=== PATIENT | female | born 1980 | race African-American/Black ===

== ENCOUNTER 2017-03-02 23:45 | Emergency (ER) | payer MEDICAID ==
[~2017-03-02] VITALS: Ht 160 cm; Wt 117.0 kg
[~2017-03-02 23:45] MED LIST: ARIP15TA6 PO; ATOR10TA PO; BUPR100T14 PO; CHOL20007 PO; HYDR25TA4 PO; LISI40TA PO; METF-372 PO; TOPI25TA32 PO; WARF10TA20 PO; [UNRECOGNIZED DRUG - CODE] PO
[2017-03-03] MEDS ORDERED: TETANUS-DIPTH-ACEL PERTUSSIS 0.5ML SYRG IM ONE (02:45)
[2017-03-03] MEDS ORDERED: methylPREDNISolone SOD SUCC 125 MG/2 ML VL IM ONE (02:45)
[2017-03-03 02:55] VITALS: BP 186/106
== END 2017-03-03 03:55 | disposition home or self-care (01) ==
LOC: ER 23:47
DX: S50.361A Insect bite (nonvenomous) of right elbow, initial encounter (principal); S20.469A Insect bite (nonvenomous) of unspecified back wall of thorax, initial encounter; E78.5 Hyperlipidemia, unspecified; I10 Essential (primary) hypertension; E11.9 Type 2 diabetes mellitus without complications; F17.210 Nicotine dependence, cigarettes, uncomplicated; Z88.6 Allergy status to analgesic agent; Z88.8 Allergy status to other drugs, medicaments and biological substances; Z79.899 Other long term (current) drug therapy; Z79.01 Long term (current) use of anticoagulants; W57.XXXA Bitten or stung by nonvenomous insect and other nonvenomous arthropods, initial encounter; Y93.89 Activity, other specified; Y92.89 Other specified places as the place of occurrence of the external cause; Y99.8 Other external cause status
CPT/HCPCS: 90471; 90715; 96372; 99284; J2930

== ENCOUNTER 2017-07-04 20:29 | Emergency (ER) | payer MEDICAID ==
[~2017-07-04] VITALS: Ht 160 cm; Wt 114.3 kg
[2017-07-04] MEDS ORDERED: cloNIDine HCL 0.1 MG TAB ONE (21:00)
[2017-07-04] MEDS ORDERED: traMADol HCL 50 MG TAB PO ONE (21:15)
[2017-07-04] MEDS ORDERED: cloNIDine HCL 0.1 MG TAB PO ONE (21:15)
[2017-07-04 21:23] LABS: Eosinophils # (auto) 0.3 uL; Monocytes # (auto) 0.4 uL; Nucleated Red Blood Cells % 0.1 %
[2017-07-04 21:24] LABS: Basophils # (auto) 0.1 uL; Basophils % (auto) 1.7 % (0.0-2.0); Eosinophils % (auto) 4.5 % (0.0-7.0); Hematocrit 35.7 % (36.0-46.0); Hemoglobin 11.3 g/dL (12.2-16.2); Lymphocytes # (auto) 1.8 uL; Lymphocytes % (auto) 27.2 % (10.0-50.0); Mean Corpuscular Hemoglobin 24.6 pg (28.0-32.0); Mean Corpuscular Hgb Conc. 31.8 g/dL (32.0-36.0); Mean Corpuscular Volume 77.3 fL (80.0-100.0); Mean Platelet Volume 8.7 fL (6.9-10.8); Monocytes % (auto) 5.9 % (0.0-12.0); Neutrophils # (auto) 4.1 uL; Neutrophils % (auto) 60.7 % (37.0-80.0); Platelet Count (auto) 229 10^3/uL (140-450); Red Cell Distribution Width 15.4 % (11.8-14.3); White Blood Cell 6.8 10^3/uL (4.4-10.8)
[2017-07-04 21:39] LABS: Albumin 2.2 g/dL (3.4-5.0); Anion Gap 8 (5-15); Aspartate Aminotransferase 22 U/L (15-37); BUN/Creatinine Ratio 10.5; Blood Urea Nitrogen 12 mg/dL (7-18); Calcium 8.1 mg/dL (8.5-10.1); Carbon Dioxide 22 mmol/L (21-32); Chloride 109 mmol/L (98-107); GFR African American 70 mL/min; GFR Non-African American 58 mL/min; Glucose 154 mg/dL (74-106); Sodium 139 mmol/L (136-145)
[2017-07-04 21:43] LABS: Alkaline Phosphatase 83 U/L (45-117); Bilirubin, Total < 0.1 mg/dL (0.2-1.0); Total Protein 6.9 g/dL (6.4-8.2)
[2017-07-04 21:46] LABS: B-Type Natriuretic Peptide 39.21 pg/mL (0-100)
[2017-07-04 21:51] LABS: Temperature: 22.4 C (20.0-25.0)
[2017-07-04 23:42] VITALS: BP 148/78
== END 2017-07-05 03:17 | disposition left against medical advice (07) ==
LOC: ER 20:29
DX: G43.909 Migraine, unspecified, not intractable, without status migrainosus (principal); I10 Essential (primary) hypertension; E11.9 Type 2 diabetes mellitus without complications; I69.351 Hemiplegia and hemiparesis following cerebral infarction affecting right dominant side; F32.9 Major depressive disorder, single episode, unspecified; E78.5 Hyperlipidemia, unspecified; M54.2 Cervicalgia; F17.210 Nicotine dependence, cigarettes, uncomplicated; F12.10 Cannabis abuse, uncomplicated
CPT/HCPCS: 36415; 70450; 80053; 83880; 84484; 85025; 93005

== ENCOUNTER 2020-01-12 18:02 | Emergency (ER) | payer MEDICAID ==
[~2020-01-12] VITALS: Ht 167.6 cm; Wt 113.4 kg
[2020-01-12 20:09] VITALS: BP 156/92
== END 2020-01-12 20:33 | disposition home or self-care (01) ==
LOC: ER 18:02
DX: N75.0 Cyst of Bartholin's gland (principal); E11.9 Type 2 diabetes mellitus without complications; E78.5 Hyperlipidemia, unspecified; I10 Essential (primary) hypertension; Z88.5 Allergy status to narcotic agent; Z88.6 Allergy status to analgesic agent; F17.210 Nicotine dependence, cigarettes, uncomplicated

== ENCOUNTER 2022-10-26 11:48 | Inpatient (IN) | payer MEDICAID ==
[~2022-10-26] VITALS: Ht 160 cm; Wt 102.3 kg
[~2022-10-26 11:48] MED LIST changes: +BUPR-160 PO; -BUPR100T14 PO; -LISI40TA PO; +LISI40TA11 PO; -TOPI25TA32 PO; +TOPI25TA43 PO
[2022-10-26 14:28] LABS: Basophils # (auto) 0 10 ^3/uL (0-0.2); Eosinophils # (auto) 0.1 10 ^3/uL (0-0.8); Eosinophils % (auto) 1.9 % (0.0-7.0); Monocytes # (auto) 0.6 10 ^3/uL (0-1.3); Nucleated Red Blood Cells % 0.3 %
[2022-10-26 14:32] LABS: Basophils % (auto) 0.9 % (0.0-2.0); Hematocrit 26.1 % (36.0-46.0); Hemoglobin 8.5 g/dL (12.2-16.2); Lymphocytes # (auto) 1.2 10 ^3/uL (0.4-5.4); Mean Corpuscular Hemoglobin 25.5 pg (28.0-32.0); Mean Corpuscular Hgb Conc. 32.5 g/dL (32.0-36.0); Mean Corpuscular Volume 78.4 fL (80.0-100.0); Monocytes % (auto) 12.5 % (0.0-12.0); Neutrophils # (auto) 2.7 10 ^3/uL (1.6-8.6); Neutrophils % (auto) 58.7 % (37.0-80.0); Red Blood Cells 3.32 10^6/uL (4.0-5.20); Red Cell Distribution Width 19.2 % (11.8-14.3); White Blood Cell 4.5 10^3/uL (4.4-10.8)
[2022-10-26 14:42] LABS: Albumin 3.5 g/dL (3.4-5.0); Calcium 9.1 mg/dL (8.5-10.1); Magnesium 2.3 mg/dL (1.6-2.6); Potassium 3.5 mmol/L (3.5-5.1)
[2022-10-26 14:45] LABS: BUN/Creatinine Ratio 5.7 (10.0-20.0); Bilirubin, Total 0.2 mg/dL (0.2-1.0); INR 1.95 (0.9-1.15); Partial Thromboplastin Time 33.3 sec (24.6-33.4)
[2022-10-26] MEDS ORDERED: MORPHINE SULFATE INJ 2 MG/ml SYRG IV PRN (16:30)
[2022-10-26] MEDS ORDERED: NITROGLYCERIN 0.4 MG SL TAB SL PRN (16:30)
[2022-10-26] MEDS ORDERED: DEXTROSE (50%) 50ML SYRG IV PRN (16:30)
[2022-10-26 17:08] LABS: Cholesterol 140 mg/dL (< 200)
[2022-10-26 17:11] LABS: HDL Cholesterol 89 mg/dL (40-59); LDL Cholesterol 47 mg/dL (< 100); Triglycerides 36 mg/dL (< 150)
[2022-10-26] MEDS: InsuLIN REG 1unit/0.01ml Soln (100units/ml) SC SCH ×2 (18:06→22:00)
[2022-10-26] MEDS: ACCU-CHEK COMFORT CURVE STRIP VI SCH ×2 (18:06→22:23)
[2022-10-26] MEDS ORDERED: WARFARIN SODIUM 2.5 MG TAB PO ONE (18:30)
[2022-10-26] MEDS: HYDROcodone-ACET 5/325MG TAB PO PRN (21:37)
[2022-10-26] MEDS ORDERED: HEPARIN SODIUM (PORCINE) 5000 UNITS/ML 1ML VIAL SC SCH (22:00)
[2022-10-26] MEDS ORDERED: TOPIRAMATE 25 MG TAB PO SCH (22:00)
[2022-10-26] MEDS: ARIPIPRAZOLE 15 MG PO SCH (22:00)
[2022-10-26] MEDS: ATORVASTATIN 20 MG TAB PO SCH (22:19)
[2022-10-27 05:00] VITALS: BP 118/40
[2022-10-27 05:03] VITALS: BP 112/31
[2022-10-27 06:38] LABS: Albumin 3.1 g/dL (3.4-5.0); Calcium 8.7 mg/dL (8.5-10.1); Potassium 3.9 mmol/L (3.5-5.1)
[2022-10-27 06:43] LABS: BUN/Creatinine Ratio 6.2 (10.0-20.0); Bilirubin, Total 0.3 mg/dL (0.2-1.0); Total Protein 7.7 g/dL (6.4-8.2)
[2022-10-27 06:47] LABS: INR 1.67 (0.9-1.15); Partial Thromboplastin Time 39.9 sec (24.6-33.4)
[2022-10-27] MEDS: ACCU-CHEK COMFORT CURVE STRIP VI SCH ×4 (06:53→22:22)
[2022-10-27] MEDS: InsuLIN REG 1unit/0.01ml Soln (100units/ml) SC SCH ×4 (06:53→22:00)
[2022-10-27 08:22] LABS: Eosinophils # (auto) 0.1 10 ^3/uL (0-0.8); Lymphocytes # (auto) 1.4 10 ^3/uL (0.4-5.4); Mean Corpuscular Hgb Conc. 32.1 g/dL (32.0-36.0); Monocytes # (auto) 0.4 10 ^3/uL (0-1.3); Nucleated Red Blood Cells % 0.4 %
[2022-10-27 08:24] LABS: Basophils # (auto) 0.1 10 ^3/uL (0-0.2); Basophils % (auto) 1.2 % (0.0-2.0); Eosinophils % (auto) 3.4 % (0.0-7.0); Monocytes % (auto) 10.1 % (0.0-12.0); Neutrophils # (auto) 2.3 10 ^3/uL (1.6-8.6); Neutrophils % (auto) 52.3 % (37.0-80.0); Red Cell Distribution Width 18.9 % (11.8-14.3); White Blood Cell 4.4 10^3/uL (4.4-10.8)
[2022-10-27 09:00] VITALS: BP 138/74
[2022-10-27] MEDS: HYDROcodone-ACET 5/325MG TAB PO PRN ×2 (09:14→20:24)
[2022-10-27] MEDS ORDERED: buPROPion HCL 100 MG TAB PO SCH (10:00)
[2022-10-27] MEDS ORDERED: LISINOPRIL 20 MG TAB PO SCH (10:00)
[2022-10-27] MEDS ORDERED: WARFARIN SODIUM 10 MG TAB PO SCH (10:00)
[2022-10-27] MEDS ORDERED: HCTZ 25 MG TAB PO SCH (10:00)
[2022-10-27 13:00] VITALS: BP 132/38
[2022-10-27] MEDS: MORPHINE SULFATE INJ 2 MG/ml SYRG IV PRN (14:44)
[2022-10-27] MEDS ORDERED: IOHEXOL 350 MG/ML 100ML IJ ONE (16:26)
[2022-10-27] MEDS ORDERED: WARFARIN SODIUM 5 MG TAB PO ONE (17:00)
[2022-10-27] MEDS: LISINOPRIL 20 MG TAB PO SCH (17:19)
[2022-10-27] MEDS: ARIPIPRAZOLE 15 MG PO SCH (22:00)
[2022-10-27] MEDS: ATORVASTATIN 20 MG TAB PO SCH (22:22)
[2022-10-28] MEDS: HYDROcodone-ACET 5/325MG TAB PO PRN (05:54)
[2022-10-28] MEDS: ACCU-CHEK COMFORT CURVE STRIP VI SCH ×4 (06:00→22:13)
[2022-10-28] MEDS: InsuLIN REG 1unit/0.01ml Soln (100units/ml) SC SCH ×4 (06:00→22:00)
[2022-10-28 06:35] LABS: INR 1.9 (0.9-1.15); Partial Thromboplastin Time 34.9 sec (24.6-33.4)
[2022-10-28] MEDS ORDERED: SODIUM CHL 0.9% 1000 ML BAG XX ONE (07:00)
[2022-10-28 08:52] VITALS: BP 155/53
[2022-10-28] MEDS: LISINOPRIL 20 MG TAB PO SCH (10:00)
[2022-10-28] MEDS: MORPHINE SULFATE INJ 2 MG/ml SYRG IV PRN ×2 (12:56→20:02)
[2022-10-28 13:27] VITALS: BP 148/48
[2022-10-28 14:35] LABS: Hematocrit 26.7 % (36.0-46.0)
[2022-10-28 14:37] LABS: Hemoglobin 8.7 g/dL (12.2-16.2)
[2022-10-28] MEDS ORDERED: WARFARIN SODIUM 2 MG TAB PO ONE (17:00)
[2022-10-28 17:21] VITALS: BP 177/55
[2022-10-28] MEDS ORDERED: EPOETIN ALFA-EPBX 10,000 UNIT/1ML VIAL SC ONE (21:00)
[2022-10-28 22:00] VITALS: BP 155/66
[2022-10-28] MEDS: ARIPIPRAZOLE 15 MG PO SCH (22:00)
[2022-10-28] MEDS: ATORVASTATIN 20 MG TAB PO SCH (22:12)
[2022-10-29 05:00] VITALS: BP 154/60
[2022-10-29] MEDS: MORPHINE SULFATE INJ 2 MG/ml SYRG IV PRN ×3 (05:16→20:17)
[2022-10-29 05:49] LABS: Eosinophils # (auto) 0.2 10 ^3/uL (0-0.8); Lymphocytes # (auto) 1.4 10 ^3/uL (0.4-5.4); Monocytes # (auto) 0.5 10 ^3/uL (0-1.3)
[2022-10-29 05:52] LABS: Basophils # (auto) 0 10 ^3/uL (0-0.2); Basophils % (auto) 0.9 % (0.0-2.0); Eosinophils % (auto) 3.2 % (0.0-7.0); Hematocrit 24.5 % (36.0-46.0); Hemoglobin 8.2 g/dL (12.2-16.2); Lymphocytes % (auto) 27.9 % (10.0-50.0); Mean Corpuscular Hemoglobin 25.5 pg (28.0-32.0); Mean Corpuscular Hgb Conc. 33.3 g/dL (32.0-36.0); Mean Corpuscular Volume 76.6 fL (80.0-100.0); Monocytes % (auto) 10.4 % (0.0-12.0); Neutrophils # (auto) 2.9 10 ^3/uL (1.6-8.6); Neutrophils % (auto) 57.6 % (37.0-80.0); Red Cell Distribution Width 18.9 % (11.8-14.3)
[2022-10-29 06:05] LABS: INR 1.9 (0.9-1.15)
[2022-10-29] MEDS: InsuLIN REG 1unit/0.01ml Soln (100units/ml) SC SCH ×4 (06:26→22:00)
[2022-10-29] MEDS: ACCU-CHEK COMFORT CURVE STRIP VI SCH ×4 (06:26→22:14)
[2022-10-29 06:38] LABS: BUN/Creatinine Ratio 7.1 (10.0-20.0); Calcium 8.9 mg/dL (8.5-10.1); Potassium 4.7 mmol/L (3.5-5.1)
[2022-10-29 09:00] VITALS: BP 154/53
[2022-10-29] MEDS: HYDROcodone-ACET 5/325MG TAB PO PRN (10:00)
[2022-10-29] MEDS: LISINOPRIL 20 MG TAB PO SCH (10:01)
[2022-10-29 13:00] VITALS: BP 165/49
[2022-10-29] MEDS: hydrALAZINE HCL 20 MG/ML VL IV PRN (14:03)
[2022-10-29 17:00] VITALS: BP 175/112
[2022-10-29] MEDS ORDERED: WARFARIN SODIUM 5 MG TAB PO ONE (17:00)
[2022-10-29] MEDS ORDERED: amLODIPine BESYLATE 5 MG TAB PO SCH (17:15)
[2022-10-29] MEDS ORDERED: cloNIDine HCL 0.1 MG TAB PO ONE ×2 (17:15)
[2022-10-29] MEDS: cloNIDine HCL 0.1 MG TAB PO SCH ×2 (17:15→22:13)
[2022-10-29] MEDS: amLODIPine BESYLATE 5 MG TAB PO SCH ×3 (17:45→18:39)
[2022-10-29] MEDS ORDERED: MINOXIDIL 2.5 MG TAB PO PRN (17:45)
[2022-10-29 22:00] VITALS: BP 130/62
[2022-10-29] MEDS: ARIPIPRAZOLE 15 MG PO SCH (22:00)
[2022-10-29] MEDS: ATORVASTATIN 20 MG TAB PO SCH (22:14)
[2022-10-30] VITALS (7 sets, daily range): BP systolic 124–168; BP diastolic 48–71
[2022-10-30] MEDS ORDERED: TEMA30CA PO (00:54)
[2022-10-30] MEDS ORDERED: CITA10TA70 PO (00:54)
[2022-10-30] MEDS ORDERED: WARF10TA20 PO (00:54)
[2022-10-30] MEDS ORDERED: TEMA15CA2 PO (00:54)
[2022-10-30] MEDS ORDERED: CARV12.544 PO (00:54)
[2022-10-30] MEDS ORDERED: NIF10C PO (00:54)
[2022-10-30] MEDS ORDERED: THIA100T5 PO (00:54)
[2022-10-30] MEDS ORDERED: HYDR50TA15 PO (00:54)
[2022-10-30] MEDS ORDERED: GEMF-19 PO (00:54)
[2022-10-30] MEDS ORDERED: ATOR40TA52 PO (00:54)
[2022-10-30] MEDS ORDERED: ASPI-543 PO (00:54)
[2022-10-30] MEDS ORDERED: ARIP1TAB5 PO (00:54)
[2022-10-30] MEDS ORDERED: FOLI1TAB6 PO (00:54)
[2022-10-30] MEDS ORDERED: MIN25T PO (00:54)
[2022-10-30] MEDS ORDERED: HYDR-4902 PO (00:56)
[2022-10-30] MEDS: MORPHINE SULFATE INJ 2 MG/ml SYRG IV PRN ×3 (04:20→23:31)
[2022-10-30] MEDS: InsuLIN REG 1unit/0.01ml Soln (100units/ml) SC SCH ×4 (06:32→20:52)
[2022-10-30] MEDS: ACCU-CHEK COMFORT CURVE STRIP VI SCH ×4 (06:32→20:52)
[2022-10-30 07:12] LABS: Basophils # (auto) 0.1 10 ^3/uL (0-0.2); Basophils % (auto) 1.5 % (0.0-2.0); Eosinophils # (auto) 0.1 10 ^3/uL (0-0.8); Eosinophils % (auto) 2.7 % (0.0-7.0); Hemoglobin 8.3 g/dL (12.2-16.2); Lymphocytes # (auto) 1.2 10 ^3/uL (0.4-5.4); Lymphocytes % (auto) 26.9 % (10.0-50.0); Mean Corpuscular Hemoglobin 25.3 pg (28.0-32.0); Mean Corpuscular Hgb Conc. 33.3 g/dL (32.0-36.0); Monocytes # (auto) 0.5 10 ^3/uL (0-1.3); Monocytes % (auto) 10.8 % (0.0-12.0); Neutrophils # (auto) 2.6 10 ^3/uL (1.6-8.6); Neutrophils % (auto) 58.1 % (37.0-80.0); Nucleated Red Blood Cells % 0.1 %; Red Blood Cells 3.29 10^6/uL (4.0-5.20); Red Cell Distribution Width 18.9 % (11.8-14.3); White Blood Cell 4.4 10^3/uL (4.4-10.8)
[2022-10-30 07:29] LABS: INR 2.22 (0.9-1.15); Partial Thromboplastin Time 40.2 sec (24.6-33.4)
[2022-10-30 07:40] LABS: Calcium 8.7 mg/dL (8.5-10.1)
[2022-10-30 07:43] LABS: BUN/Creatinine Ratio 7.8 (10.0-20.0)
[2022-10-30 07:48] LABS: Potassium 5.9 mmol/L (3.5-5.1)
[2022-10-30] MEDS ORDERED: ALBUTEROL SULF 2.5 MG/0.5ML(0.5%) NEB SOLN NEB ONE (09:30)
[2022-10-30] MEDS ORDERED: InsuLIN REG 1unit/0.01ml Soln (100units/ml) IV ONE (09:30)
[2022-10-30] MEDS ORDERED: DEXTROSE (50%) 50ML SYRG IV ONE (09:30)
[2022-10-30] MEDS ORDERED: SODIUM ZIRCONIUM CYCL 10 GM PAK PO ONE (09:30)
[2022-10-30] MEDS ORDERED: SODIUM CHLORIDE 0.9 % NEB SOLN 3ML NEB ONE (09:41)
[2022-10-30] MEDS ORDERED: MINOXIDIL 2.5 MG TAB PO SCH (10:00)
[2022-10-30] MEDS: cloNIDine HCL 0.1 MG TAB PO SCH ×2 (10:25→21:50)
[2022-10-30] MEDS ORDERED: DEXTROSE 10% 250 ML Bag IV ONE (11:30)
[2022-10-30] MEDS: HYDROcodone-ACET 5/325MG TAB PO PRN (12:26)
[2022-10-30 15:34] LABS: INR 2.16 (0.9-1.15); Partial Thromboplastin Time 38.9 sec (24.6-33.4)
[2022-10-30] MEDS: hydrALAZINE HCL 20 MG/ML VL IV PRN (16:55)
[2022-10-30] MEDS ORDERED: WARFARIN SODIUM 5 MG TAB PO ONE (17:00)
[2022-10-30] MEDS: amLODIPine BESYLATE 5 MG TAB PO SCH (17:52)
[2022-10-30] MEDS: ATORVASTATIN 20 MG TAB PO SCH (21:51)
[2022-10-30] MEDS: ARIPIPRAZOLE 15 MG PO SCH (22:00)
[2022-10-31 05:00] VITALS: BP 155/59
[2022-10-31] MEDS: InsuLIN REG 1unit/0.01ml Soln (100units/ml) SC SCH ×2 (06:24→11:30)
[2022-10-31] MEDS: ACCU-CHEK COMFORT CURVE STRIP VI SCH ×2 (06:25→12:06)
[2022-10-31] MEDS ORDERED: SODIUM CHL 0.9% 1000 ML BAG XX ONE (07:00)
[2022-10-31 07:03] LABS: Basophils # (auto) 0.1 10 ^3/uL (0-0.2); Basophils % (auto) 0.6 % (0.0-2.0); Eosinophils # (auto) 0.2 10 ^3/uL (0-0.8); Eosinophils % (auto) 1.8 % (0.0-7.0); Hematocrit 28.5 % (36.0-46.0); Hemoglobin 9.2 g/dL (12.2-16.2); Lymphocytes # (auto) 1.8 10 ^3/uL (0.4-5.4); Lymphocytes % (auto) 20.1 % (10.0-50.0); Mean Corpuscular Hemoglobin 24.9 pg (28.0-32.0); Mean Corpuscular Hgb Conc. 32.4 g/dL (32.0-36.0); Mean Corpuscular Volume 76.9 fL (80.0-100.0); Monocytes # (auto) 0.7 10 ^3/uL (0-1.3); Monocytes % (auto) 8.2 % (0.0-12.0); Neutrophils # (auto) 6.1 10 ^3/uL (1.6-8.6); Neutrophils % (auto) 69.3 % (37.0-80.0); Nucleated Red Blood Cells % 0.1 %; Red Blood Cells 3.71 10^6/uL (4.0-5.20); Red Cell Distribution Width 18.9 % (11.8-14.3); White Blood Cell 8.9 10^3/uL (4.4-10.8)
[2022-10-31 08:30] VITALS: BP 152/72
[2022-10-31 09:49] LABS: INR 3.04 (0.9-1.15)
[2022-10-31] MEDS: HYDROcodone-ACET 5/325MG TAB PO PRN (10:07)
[2022-10-31 12:00] VITALS: BP 183/67
[2022-10-31 12:50] VITALS: BP 152/72
[2022-10-31] MEDS: cloNIDine HCL 0.1 MG TAB PO SCH (14:45)
== END 2022-10-31 16:16 | disposition home or self-care (01) | DRG 204 ==
LOC: EDBD 11:48 → ER 11:48 → TELE-CENTR 16:17
PROVIDERS: ADMIT Nurse Practitioner Family; ATTEND Nurse Practitioner Acute Care
PROC: 5A1D70Z Performance of Urinary Filtration, Intermittent, Less than 6 Hours Per Day (ICD-10-PCS; principal; 2022-10-28)
PROC: 4A00X4Z Measurement of Central Nervous Electrical Activity, External Approach (ICD-10-PCS; 2022-10-29)
PROC: 5A1D70Z Performance of Urinary Filtration, Intermittent, Less than 6 Hours Per Day (ICD-10-PCS; 2022-10-31)
DX: I95.1 Orthostatic hypotension (principal); I12.0 Hypertensive chronic kidney disease with stage 5 chronic kidney disease or end stage renal disease; E11.22 Type 2 diabetes mellitus with diabetic chronic kidney disease; G81.91 Hemiplegia, unspecified affecting right dominant side; D63.1 Anemia in chronic kidney disease; N18.6 End stage renal disease; Z20.822 Contact with and (suspected) exposure to COVID-19; I25.10 Atherosclerotic heart disease of native coronary artery without angina pectoris; G43.909 Migraine, unspecified, not intractable, without status migrainosus; F31.9 Bipolar disorder, unspecified; E78.5 Hyperlipidemia, unspecified; E11.42 Type 2 diabetes mellitus with diabetic polyneuropathy; N25.81 Secondary hyperparathyroidism of renal origin; F17.210 Nicotine dependence, cigarettes, uncomplicated; F20.9 Schizophrenia, unspecified; E87.5 Hyperkalemia; Z95.3 Presence of xenogenic heart valve; Z83.3 Family history of diabetes mellitus; Z82.49 Family history of ischemic heart disease and other diseases of the circulatory system; Z82.3 Family history of stroke; Z79.01 Long term (current) use of anticoagulants; Z79.899 Other long term (current) drug therapy; Z74.01 Bed confinement status; Z99.2 Dependence on renal dialysis; Z88.6 Allergy status to analgesic agent; Z82.5 Family history of asthma and other chronic lower respiratory diseases; Z86.79 Personal history of other diseases of the circulatory system
CPT/HCPCS: 36415; 70450; 70498; 71045; 78582; 80048; 80053; 80061; 82728; 82962; 83036; 83605; 83735; 83880; 84443; 84484; 84702; 85014; 85018; 85025; 85379; 85610; 85730; 87040; 87426; 90935; 93005; 93306; 93886; 93970; 95819; 97110; 97116; 97163; 97530; G0378; J1815

== ENCOUNTER 2023-03-22 10:58 | Inpatient (IN) | payer MEDICAID, OTHER ==
[~2023-03-22] VITALS: Ht 167.6 cm; Wt 104.4 kg
[~2023-03-22 10:58] MED LIST changes: +ARIP1TAB5 PO; +ASPI-543 PO; +ATOR40TA52 PO; -BUPR-160 PO; +BUPR-346 PO; +CARV12.544 PO; +CITA10TA5 PO; +FOLI-119 PO; +GEMF-66 PO; +HYDR-4297 PO; +HYDR-4902 PO; -LISI40TA11 PO; +LISI40TA16 PO; +MIN25T PO; +NIF10C PO; +TEMA15CA2 PO; +TEMA30CA PO; +THIA100T5 PO; +WARF-115 PO; -WARF10TA20 PO
[2023-03-22] MEDS ORDERED: ONDANSETRON HCL 4 MG/2 ML VIAL IM ONE (11:15)
[2023-03-22] MEDS ORDERED: MORPHINE SULFATE 4 MG/ML SYR/VIAL IV ONE (11:15)
[2023-03-22 11:41] LABS: Basophils # (auto) 0 10 ^3/uL (0-0.2); Mean Corpuscular Hemoglobin 26.7 pg (28.0-32.0); Red Blood Cells 3.13 10^6/uL (4.0-5.20)
[2023-03-22 11:43] LABS: Basophils % (auto) 0.8 % (0.0-2.0); Eosinophils # (auto) 0.2 10 ^3/uL (0-0.8); Eosinophils % (auto) 4.8 % (0.0-7.0); Hematocrit 25.8 % (36.0-46.0); Hemoglobin 8.3 g/dL (12.2-16.2); Lymphocytes # (auto) 1.1 10 ^3/uL (0.4-5.4); Lymphocytes % (auto) 23.3 % (10.0-50.0); Mean Corpuscular Hgb Conc. 32.4 g/dL (32.0-36.0); Mean Corpuscular Volume 82.4 fL (80.0-100.0); Monocytes # (auto) 0.3 10 ^3/uL (0-1.3); Monocytes % (auto) 6.5 % (0.0-12.0); Neutrophils # (auto) 3.2 10 ^3/uL (1.6-8.6); Neutrophils % (auto) 64.6 % (37.0-80.0); Nucleated Red Blood Cells % 0.3 %; Red Cell Distribution Width 15.5 % (11.8-14.3); White Blood Cell 4.9 10^3/uL (4.4-10.8)
[2023-03-22 11:59] LABS: INR 3.15 (0.9-1.15); Partial Thromboplastin Time 53.8 SEC (24.5-34.5); Prothrombin Time 30.7 sec (9.3-11.8)
[2023-03-22 12:28] VITALS: PULSE 73; RESP 26; O2SAT 97
[2023-03-22] MEDS ORDERED: ONDANSETRON HCL 4 MG/2 ML VIAL IV ONE (12:30)
[2023-03-22 12:36] LABS: Albumin 4.2 g/dL (3.2-4.8); Alkaline Phosphatase 101 U/L (46-116); Anion Gap 6.1 (5-15); Aspartate Aminotransferase 10 U/L (13-40); BUN/Creatinine Ratio 4.3 (10.0-20.0); Blood Urea Nitrogen 20 mg/dL (9-23); Carbon Dioxide 30.9 mmol/L (20-30); Chloride 98 mmol/L (98-107); Glucose 61 mg/dL (74-106); Sodium 135 mmol/L (136-145)
[2023-03-22] MEDS ORDERED: cloNIDine HCL 0.1 MG TAB ONE (12:36)
[2023-03-22 12:37] LABS: Bilirubin, Total 0.4 mg/dL (0.2-1.0); Total Protein 8.2 g/dL (5.7-8.2)
[2023-03-22 12:40] LABS: Alanine Aminotransferase < 9 U/L (7-40)
[2023-03-22] MEDS ORDERED: cloNIDine HCL 0.1 MG TAB PO ONE (12:45)
[2023-03-22] MEDS ORDERED: hydrALAZINE HCL 20 MG/ML VL IV ONE (13:30)
[2023-03-22] MEDS ORDERED: hydrALAZINE HCL 20 MG/ML VL IV PRN (14:00)
[2023-03-22] MEDS ORDERED: ACETAMINOPHEN 325 MG TAB PO PRN (14:00)
[2023-03-22] MEDS ORDERED: NITROGLYCERIN 0.4 MG SL TAB SL PRN (14:00)
[2023-03-22] MEDS ORDERED: DEXTROSE (50%) 50ML SYRG IV PRN (14:15)
[2023-03-22 14:51] LABS: Triglycerides 54 mg/dL (< 150)
[2023-03-22 14:52] LABS: LDL Cholesterol 27 mg/dL (< 100)
[2023-03-22 14:53] LABS: Cholesterol 139 mg/dL (< 200); HDL Cholesterol 80 mg/dL (40-59)
[2023-03-22] MEDS ORDERED: ALBUTEROL SULF 2.5 MG/0.5ML(0.5%) NEB SOLN NEB PRN (15:30)
[2023-03-22 15:51] VITALS: BP 217/105; PULSE 74; RESP 16; O2SAT 97
[2023-03-22] MEDS: ACCU-CHEK COMFORT CURVE STRIP VI SCH ×2 (18:26→22:40)
[2023-03-22] MEDS: InsuLIN REG 1unit/0.01ml Soln (100units/ml) SC SCH ×2 (18:26→22:40)
[2023-03-22 19:00] VITALS: O2SAT 96
[2023-03-22 20:05] VITALS: PULSE 71; RESP 22; O2SAT 97
[2023-03-22] MEDS ORDERED: HYDROcodone-ACET 5/325MG TAB PO PRN (20:45)
[2023-03-22] MEDS: CARVEDILOL 12.5 MG TAB PO SCH (21:35)
[2023-03-22] MEDS: TOPIRAMATE 25 MG TAB PO SCH (21:35)
[2023-03-22] MEDS: MINOXIDIL 2.5 MG TAB PO SCH (21:35)
[2023-03-22] MEDS: HEPARIN SODIUM (PORCINE) 5000 UNITS/ML 1ML VIAL SC SCH (21:36)
[2023-03-22] MEDS: MORPHINE SULFATE INJ 2 MG/ml SYRG IV PRN (21:36)
[2023-03-23 05:31] LABS: INR 3.06 (0.9-1.15); Prothrombin Time 29.9 sec (9.3-11.8)
[2023-03-23 05:37] LABS: Basophils # (auto) 0 10 ^3/uL (0-0.2); Basophils % (auto) 1.3 % (0.0-2.0); Eosinophils # (auto) 0.3 10 ^3/uL (0-0.8); Hematocrit 27.6 % (36.0-46.0); Hemoglobin 8.9 g/dL (12.2-16.2); Lymphocytes # (auto) 1.4 10 ^3/uL (0.4-5.4); Mean Corpuscular Hemoglobin 27.4 pg (28.0-32.0); Mean Corpuscular Hgb Conc. 32.2 g/dL (32.0-36.0); Monocytes # (auto) 0.3 10 ^3/uL (0-1.3); Monocytes % (auto) 7.7 % (0.0-12.0); Neutrophils # (auto) 1.7 10 ^3/uL (1.6-8.6); Nucleated Red Blood Cells % 0.1 %; Red Blood Cells 3.24 10^6/uL (4.0-5.20); Red Cell Distribution Width 15.8 % (11.8-14.3); White Blood Cell 3.7 10^3/uL (4.4-10.8)
[2023-03-23 05:41] LABS: Alkaline Phosphatase 100 U/L (46-116); Anion Gap 4.7 (5-15); Aspartate Aminotransferase 11 U/L (13-40); BUN/Creatinine Ratio 3.5 (10.0-20.0); Blood Urea Nitrogen 19 mg/dL (9-23); Carbon Dioxide 29.3 mmol/L (20-30); Chloride 99 mmol/L (98-107); Glucose 71 mg/dL (74-106); Potassium 4.6 mmol/L (3.5-5.1); Sodium 133 mmol/L (136-145)
[2023-03-23 05:42] LABS: Albumin 3.9 g/dL (3.2-4.8); Bilirubin, Total 0.3 mg/dL (0.2-1.0); Total Protein 7.8 g/dL (5.7-8.2)
[2023-03-23] MEDS: InsuLIN REG 1unit/0.01ml Soln (100units/ml) SC SCH ×4 (06:32→22:43)
[2023-03-23] MEDS: ACCU-CHEK COMFORT CURVE STRIP VI SCH ×4 (06:32→22:43)
[2023-03-23] MEDS: ATORVASTATIN 20 MG TAB PO SCH (06:34)
[2023-03-23 07:00] LABS: Alanine Aminotransferase < 9 U/L (7-40)
[2023-03-23 08:00] VITALS: PULSE 67; RESP 17; O2SAT 97
[2023-03-23] MEDS: MORPHINE SULFATE INJ 2 MG/ml SYRG IV PRN ×2 (09:23→09:28)
[2023-03-23] MEDS: ONDANSETRON HCL 4 MG/2 ML VIAL IV PRN ×2 (09:27→20:21)
[2023-03-23] MEDS ORDERED: NIFEdipine 10 MG CAP PO SCH (10:00)
[2023-03-23] MEDS: HEPARIN SODIUM (PORCINE) 5000 UNITS/ML 1ML VIAL SC SCH (10:00)
[2023-03-23 10:23] LABS: Platelet Estimate Adequate
[2023-03-23] MEDS: CITALOPRAM HYDROBR 20 MG TAB PO SCH (10:23)
[2023-03-23] MEDS: MINOXIDIL 2.5 MG TAB PO SCH ×2 (10:23→22:49)
[2023-03-23] MEDS: HCTZ 25 MG TAB PO SCH (10:24)
[2023-03-23] MEDS: TOPIRAMATE 25 MG TAB PO SCH ×2 (10:24→22:50)
[2023-03-23] MEDS: FOLIC ACID 1 MG TAB PO SCH (10:24)
[2023-03-23] MEDS: buPROPion HCL 100 MG TAB PO SCH (10:25)
[2023-03-23] MEDS: ASPirin-EC 81 mg tab PO SCH (10:26)
[2023-03-23] MEDS: THIAMINE HCL 100 MG TAB PO SCH (10:26)
[2023-03-23] MEDS: CARVEDILOL 12.5 MG TAB PO SCH ×2 (10:26→22:49)
[2023-03-23] MEDS ORDERED: HYDROmorphone HCL 2 MG/ML VL/or syr IV SCH (12:45)
[2023-03-23] MEDS: HYDROmorphone HCL 2 MG/ML VL/or syr IV PRN ×2 (13:26→20:22)
[2023-03-23] MEDS: hydrALAZINE HCL 25 MG TAB PO SCH ×2 (14:35→22:50)
[2023-03-23] MEDS ORDERED: cefTRIAXone 1GM/50ML D5W 50 ML IV ONE (15:00)
[2023-03-23] MEDS ORDERED: AZITHROMYCIN 500MG/ 250ML 250 ML IV ONE (15:15)
[2023-03-23 18:05] VITALS: O2SAT 95
[2023-03-23] MEDS ORDERED: WARFARIN SODIUM 2.5 MG TAB PO ONE (18:30)
[2023-03-23 20:20] VITALS: PULSE 76; RESP 15; O2SAT 95
[2023-03-24] VITALS (9 sets, daily range): BP systolic 103–153; BP diastolic 45–78; PULSE 75–87; RESP 12–19; TEMP 97.6–98.7; O2SAT 95–100
[2023-03-24] MEDS: MORPHINE SULFATE INJ 2 MG/ml SYRG IV PRN (00:31)
[2023-03-24 06:32] LABS: Basophils # (auto) 0 10 ^3/uL (0-0.2); Monocytes # (auto) 0.3 10 ^3/uL (0-1.3)
[2023-03-24 06:35] LABS: Basophils % (auto) 0.3 % (0.0-2.0); Eosinophils # (auto) 0.3 10 ^3/uL (0-0.8); Eosinophils % (auto) 4.4 % (0.0-7.0); Hematocrit 24.5 % (36.0-46.0); Hemoglobin 8.1 g/dL (12.2-16.2); Lymphocytes % (auto) 15.7 % (10.0-50.0); Mean Corpuscular Hemoglobin 27.4 pg (28.0-32.0); Mean Corpuscular Hgb Conc. 32.9 g/dL (32.0-36.0); Mean Corpuscular Volume 83.4 fL (80.0-100.0); Monocytes % (auto) 4.5 % (0.0-12.0); Neutrophils # (auto) 4.7 10 ^3/uL (1.6-8.6); Neutrophils % (auto) 75.1 % (37.0-80.0); Nucleated Red Blood Cells % 0.1 %; Red Blood Cells 2.94 10^6/uL (4.0-5.20); Red Cell Distribution Width 15.8 % (11.8-14.3); White Blood Cell 6.3 10^3/uL (4.4-10.8)
[2023-03-24] MEDS: ATORVASTATIN 20 MG TAB PO SCH (06:38)
[2023-03-24] MEDS: hydrALAZINE HCL 25 MG TAB PO SCH ×2 (06:38→14:00)
[2023-03-24] MEDS: InsuLIN REG 1unit/0.01ml Soln (100units/ml) SC SCH ×3 (06:42→16:49)
[2023-03-24 06:53] LABS: INR 2.87 (0.9-1.15); Prothrombin Time 28.1 sec (9.3-11.8)
[2023-03-24] MEDS ORDERED: SODIUM CHL 0.9% 1000 ML BAG XX ONE (07:00)
[2023-03-24] MEDS: ACCU-CHEK COMFORT CURVE STRIP VI SCH ×3 (07:51→16:49)
[2023-03-24 07:52] LABS: Alkaline Phosphatase 89 U/L (46-116); Anion Gap 8.6 (5-15); BUN/Creatinine Ratio 5.3 (10.0-20.0); Calcium 8.8 mg/dL (8.5-10.1); Carbon Dioxide 27.4 mmol/L (20-30); Chloride 99 mmol/L (98-107); Glucose 60 mg/dL (74-106); Potassium 5.2 mmol/L (3.5-5.1); Sodium 135 mmol/L (136-145)
[2023-03-24 07:54] LABS: Albumin 3.8 g/dL (3.2-4.8); Aspartate Aminotransferase 13 U/L (13-40); Bilirubin, Total 0.2 mg/dL (0.2-1.0); Total Protein 7.5 g/dL (5.7-8.2)
[2023-03-24 08:00] LABS: Alanine Aminotransferase < 9 U/L (7-40); Blood Urea Nitrogen 34 mg/dL (9-23)
[2023-03-24] MEDS ORDERED: cefTRIAXone 1GM/50ML D5W 50 ML IV SCH (09:00)
[2023-03-24] MEDS: FOLIC ACID 1 MG TAB PO SCH (09:28)
[2023-03-24] MEDS: TOPIRAMATE 25 MG TAB PO SCH (09:29)
[2023-03-24] MEDS: buPROPion HCL 100 MG TAB PO SCH (09:29)
[2023-03-24] MEDS: THIAMINE HCL 100 MG TAB PO SCH (09:31)
[2023-03-24] MEDS: ASPirin-EC 81 mg tab PO SCH (09:31)
[2023-03-24] MEDS: CITALOPRAM HYDROBR 20 MG TAB PO SCH (09:32)
[2023-03-24] MEDS: CARVEDILOL 12.5 MG TAB PO SCH (09:36)
[2023-03-24] MEDS: HCTZ 25 MG TAB PO SCH (09:38)
[2023-03-24] MEDS: MINOXIDIL 2.5 MG TAB PO SCH (09:39)
[2023-03-24] MEDS ORDERED: NIFEdipine ER 30 MG TAB PO SCH (10:00)
[2023-03-24] MEDS ORDERED: AZITHROMYCIN 500MG/ 250ML 250 ML IV SCH (10:00)
[2023-03-24] MEDS ORDERED: AZIT500T PO ×2 (15:30→15:31)
[2023-03-24] MEDS ORDERED: WARFARIN SODIUM 2.5 MG TAB PO ONE (17:00)
[2023-03-24] MEDS ORDERED: EPOETIN ALFA-EPBX 10,000 UNIT/1ML VIAL SC ONE (21:00)
== END 2023-03-24 17:00 | disposition home or self-care (01) | DRG 199 ==
LOC: EDBD 10:58 → ER 10:58 → TELE 13:57 → TELE-CENTR 03-23 21:34
PROVIDERS: ADMIT Internal Medicine Pulmonary Disease; ATTEND Internal Medicine Pulmonary Disease
DX: I16.1 Hypertensive emergency (principal); J69.0 Pneumonitis due to inhalation of food and vomit; N18.6 End stage renal disease; D63.1 Anemia in chronic kidney disease; E11.22 Type 2 diabetes mellitus with diabetic chronic kidney disease; N25.81 Secondary hyperparathyroidism of renal origin; E78.5 Hyperlipidemia, unspecified; F32.A Depression, unspecified; I25.10 Atherosclerotic heart disease of native coronary artery without angina pectoris; I12.0 Hypertensive chronic kidney disease with stage 5 chronic kidney disease or end stage renal disease; E66.01 Morbid (severe) obesity due to excess calories; I65.29 Occlusion and stenosis of unspecified carotid artery; R09.89 Other specified symptoms and signs involving the circulatory and respiratory systems; Z99.2 Dependence on renal dialysis; Z68.37 Body mass index [BMI] 37.0-37.9, adult; Z88.5 Allergy status to narcotic agent; Z88.8 Allergy status to other drugs, medicaments and biological substances; Z79.01 Long term (current) use of anticoagulants; Z80.9 Family history of malignant neoplasm, unspecified; Z82.5 Family history of asthma and other chronic lower respiratory diseases; Z82.3 Family history of stroke; Z82.49 Family history of ischemic heart disease and other diseases of the circulatory system; Z83.3 Family history of diabetes mellitus; Z86.718 Personal history of other venous thrombosis and embolism; Z86.73 Personal history of transient ischemic attack (TIA), and cerebral infarction without residual deficits; Z88.6 Allergy status to analgesic agent; Z95.2 Presence of prosthetic heart valve
CPT/HCPCS: 36415; 70450; 71045; 73700; 80053; 80061; 82962; 83036; 84443; 85025; 85379; 85610; 85730; 87081; 90935; 93886; 93971; 96372; 99291; G0378; J0696; J1642; J2405